=== PATIENT | female | born 1965 | race Caucasian/White ===

== ENCOUNTER 2020-04-03 17:31 | Emergency (ER) | payer OTHER ==
[~2020-04-03] VITALS: Ht 152.4 cm; Wt 142.7 kg
[2020-04-03 18:24] VITALS: BP 153/71
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
[2020-04-03] MEDS ORDERED: OXYC5CAP PO (20:24)
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
== END 2020-04-03 20:50 | disposition home or self-care (01) ==
LOC: ER 17:31
DX: S80.11XA Contusion of right lower leg, initial encounter (principal); J44.9 Chronic obstructive pulmonary disease, unspecified; E11.9 Type 2 diabetes mellitus without complications; G43.909 Migraine, unspecified, not intractable, without status migrainosus; E66.01 Morbid (severe) obesity due to excess calories; Z68.44 Body mass index [BMI] 60.0-69.9, adult; Z88.5 Allergy status to narcotic agent; Z88.1 Allergy status to other antibiotic agents; Z88.8 Allergy status to other drugs, medicaments and biological substances; V87.7XXA Person injured in collision between other specified motor vehicles (traffic), initial encounter; Y93.89 Activity, other specified; Y92.488 Other paved roadways as the place of occurrence of the external cause; Y99.8 Other external cause status
CPT/HCPCS: 93971; 99284